=== PATIENT | male | born 1965 | race Caucasian/White ===

== ENCOUNTER 2018-08-29 07:30 | Outpatient (CLI) | payer OTHER, SELFPAY ==
[2018-08-29 08:39] LABS: BUN 21 mg/dL (7-18); CREATININE 1.03 mg/dL (0.70-1.30); Calcium 8.9 mg/dL (8.5-10.1); Chloride 104 mmol/L (98-107); Cholesterol 169 mg/dL (50-200); Glucose 99 mg/dL (70-100); HDL Cholesterol 43 mg/dL (40-60); LDL CHOLESTEROL 114 mg/dL (<100); Potassium 4.3 mmol/L (3.5-5.1); Sodium 142 mmol/L (136-145); Triglyceride 72 mg/dL (30-150)
[2018-08-29 08:46] LABS: Hemoglobin A1C 5.6 % (4.5-6.2)
[2018-08-30 10:17] LABS: HIV-1/2 Ag & Ab Screen Negative (NEGAT)
[2018-08-30 10:24] LABS: Hepatitis C Ab w Rflx HCV PCR Negative (NEGAT)
== END 2018-08-29 07:50 ==
PROVIDERS: PCP Nurse Practitioner Family; Visit Provider Nurse Practitioner Family
DX: I10 Essential (primary) hypertension (principal); E78.5 Hyperlipidemia, unspecified; Z11.4 Encounter for screening for human immunodeficiency virus [HIV]; Z11.59 Encounter for screening for other viral diseases; R73.01 Impaired fasting glucose
CPT/HCPCS: 36415; 80048; 80061; 83721; 86803; 87389; 83036

== ENCOUNTER 2019-05-15 02:01 | Outpatient (CLI) | payer OTHER, SELFPAY ==
[2019-05-15 08:27] LABS: Abs Immature Grans 0.03 k/cumm (0.0-0.09); Absolute Basophil Count 0.06 k/cumm (0.0-0.2); Absolute Eosinophil Count 0.54 k/cumm (0.0-0.7); Absolute Lymphocyte Count 1.99 k/cumm (1.2-3.4); Basophils % 0.7; Eosinophils % 6.1; HCT 28.7 % (40.0-50.0); HGB 8.4 g/dL (13.5-17.5); Immature Grans % 0.3; Lymphocytes % 22.3; Mean Corp. HGB Concentration 29.3 g/dL (32.0-36.0); Mean Corpuscular Hemoglobin 20.5 pg (27.0-33.0); Mean Platelet Volume 8.8 fL (8.0-11.0); Monocytes % 5.6; RBC Distribution Width 15.4 % (11.8-14.1); White Blood Cell Count 8.92 k/cumm (4.4-10.8)
[2019-05-15 08:53] LABS: Diff Comment RBC Morph Reviewed; Microcytosis 3+; Platelet Count 718 x1000/uL (130-400)
[2019-05-15 08:54] LABS: Hypochromasia 3+
[2019-05-15 10:14] LABS: ESR 38 MM/HR (1-20)
[2019-05-15 10:15] LABS: Poikilocytes 2+
[2019-05-15 10:25] LABS: ALT 14 U/L (12-78); AST 18 U/L (15-37); Albumin 3.2 g/dL (3.4-5.0); Alkaline Phosphatase 388 U/L (46-116); Anion Gap 13.1 mmol/L (3-11); BUN 24 mg/dL (7-18); Bilirubin, Direct 0.06 mg/dL (0.00-0.20); Bilirubin, Total 0.3 mg/dL (0.2-1.0); C-Reactive Protein 1.06 mg/dL (0.0-0.3); CO2 23.9 mmol/L (21.0-32.0); CREATININE 1.04 mg/dL (0.70-1.30); Calcium 9.2 mg/dL (8.5-10.1); Chloride 103 mmol/L (98-107); Glucose 92 mg/dL (70-100); Potassium 4.3 mmol/L (3.5-5.1); Sodium 140 mmol/L (136-145); Total Protein 6.5 g/dL (6.4-8.2)
[2019-05-16 11:55] LABS: Hepatitis C Ab w Rflx HCV PCR Negative (NEGAT)
[2019-05-16 12:54] LABS: HBs Antibody, Quant <3.1 mIU/mL; Hepatitis B Surface Ab Negative; Hepatitis B Surface Ag Negative (NEGAT)
[2019-05-17 13:15] LABS: TB Interpretation Negative (NEGAT)
== END 2019-05-15 02:21 ==
PROVIDERS: PCP Nurse Practitioner Family; Visit Provider Internal Medicine Gastroenterology
DX: K51.00 Ulcerative (chronic) pancolitis without complications (principal); K51.30 Ulcerative (chronic) rectosigmoiditis without complications
CPT/HCPCS: 36415; 80048; 80076; 85652; 86706; 86803; 87340; 85025; 86140; 86480; 86704

== ENCOUNTER 2019-05-20 13:14 | Outpatient (REF) | payer OTHER, SELFPAY | END 2019-05-20 13:34 | LOC: LBN 13:14 | PROVIDERS: PCP Nurse Practitioner Family; Visit Provider Internal Medicine Gastroenterology | DX: K51.30 Ulcerative (chronic) rectosigmoiditis without complications (principal) | CPT/HCPCS: 87324 ==

== ENCOUNTER 2019-08-07 14:00 | Outpatient (CLI) | payer OTHER, SELFPAY ==
--- NOTE | 2019-08-07 14:00 | DI.US_ITS ---
EXAM: US LOWER EXTREMITY VENOUS LT CLINICAL HISTORY: post L thigh pain ?DVT vs. other? M79.652. TECHNIQUE: Ultrasound was performed using standard protocol. COMPARISON: No exams were available for comparison FINDINGS: There is no evidence of DVT. Note is made of multiple reactive lymph nodes in the left groin, the lar gest of which measures 2.7 x 1.7 x 1.7 cm. A 2nd node measures 2.3 x 1.4 x 1.8 cm.
== END 2019-08-07 14:20 ==
PROVIDERS: PCP Nurse Practitioner Family; Visit Provider Nurse Practitioner Family
DX: M79.652 Pain in left thigh (principal); R59.0 Localized enlarged lymph nodes
CPT/HCPCS: 93971

== ENCOUNTER 2019-08-08 14:43 | Outpatient (CLI) | payer OTHER, SELFPAY ==
--- NOTE | 2019-08-08 15:30 | DI.RAD_ITS ---
EXAM: XR FEMUR LT INDICATION: post L thigh pain, neg US, ?etiology M79.652. COMPARISON: No exams were available for comparison TECHNIQUE: 2D digital imaging was performed. FINDINGS: Frontal images of the mid and proximal femur and left hip reveal no bony or soft tissue abnormality.
== END 2019-08-08 15:03 ==
PROVIDERS: PCP Nurse Practitioner Family; Visit Provider Nurse Practitioner Family
DX: M79.652 Pain in left thigh (principal)
CPT/HCPCS: 73552

== ENCOUNTER 2019-08-31 09:15 | Outpatient (CLI) | payer OTHER, SELFPAY ==
[2019-08-31 10:03] LABS: HCT 22.1 % (40.0-50.0); Mean Corp. HGB Concentration 26.2 g/dL (32.0-36.0); Mean Corpuscular Hemoglobin 16.8 pg (27.0-33.0); Mean Corpuscular Volume 64.1 fL (80-95); RBC 3.45 m/cumm (4.50-6.00); RBC Distribution Width 20.3 % (11.8-14.1); White Blood Cell Count 18.39 k/cumm (4.4-10.8)
[2019-08-31 10:25] LABS: HGB 5.8 g/dL (13.5-17.5)
[2019-08-31 10:26] LABS: Platelet Count 1073 x1000/uL (130-400)
[2019-08-31 10:59] LABS: Absolute Eosinophil Count 0.55 k/cumm (0.0-0.7); Absolute Lymphocyte Count 1.47 k/cumm (1.2-3.4); Absolute Neutrophil Count 16.18 k/cumm (1.2-6.7)
[2019-08-31 11:00] LABS: Diff Comment Manual Differential; Hypochromasia 2+; Microcytosis 3+; Polychromasia Present
[2019-08-31 11:01] LABS: Poikilocytes 2+
[2019-08-31 11:03] LABS: Nucleated RBC 1 /100WBC
[2019-08-31 11:19] LABS: ESR 108 mm/hr (1-20)
[2019-08-31 11:52] LABS: ALT 13 U/L (16-63); AST 19 U/L (15-37); Albumin 2.3 g/dL (3.4-5.0); Alkaline Phosphatase 325 U/L (46-116); Anion Gap 14.2 mmol/L (3-11); BUN 27 mg/dL (7-18); Bilirubin, Total 0.4 mg/dL (0.2-1.0); CO2 24.8 mmol/L (21.0-32.0); CREATININE 0.97 mg/dL (0.70-1.30); Calcium 9.8 mg/dL (8.5-10.1); Chloride 99 mmol/L (98-107); Creatine Kinase 71 U/L (39-308); Glucose 101 mg/dL (70-100); Lipase 83 U/L (73-393); Potassium 3.8 mmol/L (3.5-5.1); Sodium 138 mmol/L (136-145); Total Protein 6.4 g/dL (6.4-8.2)
[2019-08-31 11:57] LABS: C-Reactive Protein > 25.00 mg/dL (0.0-0.3)
[2019-08-31 15:11] LABS: Absolute Monocyte Count 0.18 k/cumm (0.11-0.7)
== END 2019-08-31 09:35 ==
PROVIDERS: PCP Nurse Practitioner Family; Visit Provider Nurse Practitioner Family
DX: K51.00 Ulcerative (chronic) pancolitis without complications (principal); R10.9 Unspecified abdominal pain; R23.1 Pallor; R53.1 Weakness; R63.0 Anorexia; R29.898 Other symptoms and signs involving the musculoskeletal system
CPT/HCPCS: 36415; 80053; 82550; 83690; 85652; 85025; 86140